=== PATIENT | male | born 1950 | race Asian ===

== ENCOUNTER 2016-09-18 21:24 | Emergency (ER) | payer BC, OTHER ==
[2016-09-19 00:47] VITALS: BP 134/88
== END 2016-09-19 00:47 | disposition home or self-care (01) ==
LOC: ED 21:24
DX: S01.01XA Laceration without foreign body of scalp, initial encounter (principal); S16.1XXA Strain of muscle, fascia and tendon at neck level, initial encounter; S60.512A Abrasion of left hand, initial encounter; S60.511A Abrasion of right hand, initial encounter; I10 Essential (primary) hypertension; E11.9 Type 2 diabetes mellitus without complications; E78.00 Pure hypercholesterolemia, unspecified; Z79.84 Long term (current) use of oral hypoglycemic drugs; Z79.899 Other long term (current) drug therapy; W11.XXXA Fall on and from ladder, initial encounter; Y93.89 Activity, other specified; Y92.89 Other specified places as the place of occurrence of the external cause; Y99.8 Other external cause status